=== PATIENT | male | born 1980 | race Caucasian/White ===

== ENCOUNTER 2024-04-19 01:17 | Day surgery (SDC) | payer OTHER, SELFPAY ==
[2024-04-05 14:11] VITALS: BMI 37.5
[2024-04-19 09:38] VITALS: BP 172/101; PULSE 82; RESP 18; TEMP 36.4; O2SAT 95
[2024-04-19] MEDS: LACTATED RINGERS 1,000 ML 150 ML IV CONT (09:53)
--- NOTE | 2024-04-19 09:57 | P.PNAN_ITS ---
Anes - Initial Pre Proc Eval Procedure: Operation Date: 04/19/24 11:00 Proposed Procedures p Screening Colonoscopy - Demario Samson MD Date/Time: 04/19/24 09:57 Surgeon: Demario Samson MD Pre Op Diagnosis: Neoplasm Screening Patient Data Age: 43 Gender: M Height: 1.91 m Weight: 156.7 kg Last Vital Signs Temp 97.5 F L 04/19/24 09:38 Pulse 82 04/19/24 09:38 Resp 18 04/19/24 09:38 BP 172/101 H 04/19/24 09:38 Pulse Ox 95 04/19/24 09:38 O2 Del Method Room Air 04/19/24 09:38 Allergies Allergy/AdvReac Type Severity Reaction Status Date / Time No Known Allergies Allergy Verified 04/19/24 09:37 Home Medications Medication Instructions Recorded Confirmed Type amlodipine 5 mg tablet 5 mg PO DAILY 04/05/24 04/05/24 History rosuvastatin 10 mg tablet 10 mg PO DAILY 04/05/24 04/05/24 History valsartan 320 mg tablet 320 mg PO DAILY 04/05/24 04/05/24 History Patient hx anesthesia problems: none Family hx anesthesia problems: none Results Review: All pre-operative results and documents have been reviewed as part of the pre- operative evaluation. [facility] Social History Social History Smoking packs per day: 1 Smoking cigarettes per day: 20.0 Years smoked: 20 Smoking pack-years: 20.00 Tobacco type: cigarettes and e-cigarettes/vaping Additional smoking assessment comments: QUIT SMOKING 2022 AND STARTED VAPING Alcohol intake: current Substance use: never Substance use type: does not use Living arrangements: with family Spiritual care concerns: No Anes - Eval Final PreProcedure Day of Procedure 04/19/24 09:57 Patient weight: morbidly obese Heart: regular rate and rhythm Lungs: clear to auscultation Airway: Mallampati scale class III Neurological: alert and oriented Last oral intake: >/= 8 hours ASA classification: III Emergent: no Anesthetic plan: proceed Anesthesia type and monitoring: general GIVS and standard monitoring Results Review: All pre-operative results and documents have been reviewed as part of the pre- operative evaluation. Informed Consent: The patient's anesthetic plan and its attendant risks and benefits were discussed with the patient/family/POA. Questions were solicited and answers provided to the satisfaction of the patient/family/POA.
--- NOTE | 2024-04-19 10:24 | PM.HPGS ---
History of Present Illness History of Present Illness Consent: Risks, benefits, and alternatives have been discussed and questions answered. Patient agrees to proceed with procedure. Chief complaint: Neoplasm Screening Narrative: Andrew Mendoza is a 43 year old male here for first screening colonoscopy Review of Systems Review of Systems: All systems reviewed & are unremarkable except as noted in HPI and below PMFSH Past Medical History Medical History (Updated 04/19/24 @ 10:28 by Demario Samson MD) Colon cancer screening Social History Social History Smoking packs per day: 1 Smoking cigarettes per day: 20.0 Years smoked: 20 Smoking pack-years: 20.00 Tobacco type: cigarettes and e-cigarettes/vaping Additional smoking assessment comments: QUIT SMOKING 2022 AND STARTED VAPING Alcohol intake: current Substance use: never Substance use type: does not use Living arrangements: with family Spiritual care concerns: No Meds Home Medications and Allergies Home Medications Medication Instructions Recorded Confirmed Type amlodipine 5 mg tablet 5 mg PO DAILY 04/05/24 04/05/24 History rosuvastatin 10 mg tablet 10 mg PO DAILY 04/05/24 04/05/24 History valsartan 320 mg tablet 320 mg PO DAILY 04/05/24 04/05/24 History Allergies Allergy/AdvReac Type Severity Reaction Status Date / Time No Known Allergies Allergy Verified 04/19/24 09:37 Vital Signs Vital Signs - 24 hr 04/19/24 09:38 Temperature 97.5 F L Pulse Rate 82 Respiratory Rate 18 Blood Pressure 172/101 H Pulse Oximetry 95 Oxygen Delivery Room Air Exam Const: General: comfortable and no acute distress HENMT: Face/Nose/Sinus: Normal nares present Eyes: General: appearance normal, both eyes and all related structures Neck: Neck: no JVD Resp: Auscultation: clear to auscultation bilaterally Cardio: Rate: regular rate Rhythm: regular rhythm GI: Inspection: non-distended GI Palp: Yes Soft to palpation Skin: General skin exam: normal color Neuro: General: gait normal Speech: normal speech Extrem: General: normal to inspection Psych: Mental Status: mental status grossly normal Assessment and Plan Assessment and plan (1) Colon cancer screening: Code(s): Z12.11 - Encounter for screening for malignant neoplasm of colon Status: Acute Assessment and Plan: colonoscopy
[2024-04-19 10:47] VITALS: BP 135/71; PULSE 82; RESP 17; O2SAT 94
[2024-04-19 10:57] VITALS: BP 129/71; PULSE 73; RESP 17; O2SAT 95
[2024-04-19 11:07] VITALS: BP 135/78; PULSE 69; RESP 18; O2SAT 97
== END 2024-04-19 11:10 | disposition home or self-care (01) ==
PROVIDERS: PCP Physician Assistant; Visit Provider Internal Medicine Gastroenterology
PROC: 0DJD8ZZ Inspection of Lower Intestinal Tract, Via Natural or Artificial Opening Endoscopic (ICD-10-PCS; CPT 45378; principal; 2024-04-19 11:00)
DX: Z12.11 Encounter for screening for malignant neoplasm of colon (principal); D12.4 Benign neoplasm of descending colon; K64.8 Other hemorrhoids; K57.30 Diverticulosis of large intestine without perforation or abscess without bleeding; F17.290 Nicotine dependence, other tobacco product, uncomplicated; E66.01 Morbid (severe) obesity due to excess calories; Z68.41 Body mass index [BMI] 40.0-44.9, adult
CPT/HCPCS: 45385; 88305; J2704; J7120